=== PATIENT | female | born 1965 | race Caucasian/White ===

== ENCOUNTER 2022-10-13 03:24 | Observation (INO) | payer BC ==
[2022-10-13] MEDS ORDERED: PROTONIX 40 MG IV IV ONE ×2 (03:36→04:03)
[2022-10-13] MEDS ORDERED: Pepcid 20 MG VIAL IV ONE ×2 (03:36→04:03)
--- NOTE | 2022-10-13 03:41 | ERPHSYRPT ---
- History of Present Illness Time Seen by Provider: 10/13/22 03:38 Historian: patient, family Exam Limitations: no limitations Physician History: Hx confirmed with independent interview family member. Pt has PMHx of esopahgeal problems with spasm in 'throat ' causing difficulties swallowing and required botox injections - resolved one year ago. No hx ht problems except for hptn. No hx blood clot dvt or PE. Timing/Duration: today Activities at Onset: none, sleep Quality: sharpness Location: central Chest Pain Radiation: no radiation Severity of Pain-Max: moderate Severity of Pain-Current: moderate Modifying Factors: Improves With: nothing Associated Symptoms: heartburn, shortness of breath Prior Chest Pain/Cardiac Workup: no prior chest pain Nitro Today/Relief: 0.4 mg x 1, provided by ED Aspirin Treatment Today: 81 mg x 4, provided by ED Allergies/Adverse Reactions: No Known Drug Allergies Allergy (Unverified 10/13/22 03:57) Home Medications: Estradiol [Estrace] 0.5 mg PO DAILY 10/13/22 [History] Lisinopril 20 mg [Zestril 20 MG] 20 cap PO DAILY 10/13/22 [History] - Review of Systems Constitutional: No Fever, No Chills Eyes: No Symptoms Ears, Nose, & Throat: No Symptoms Respiratory: Dyspnea, No Cough Cardiac: Chest Pain, No Edema, No Syncope Abdominal/Gastrointestinal: No Abdominal Pain, No Nausea, No Vomiting, No Di arrhea Genitourinary Symptoms: No Dysuria Musculoskeletal: No Back Pain, No Neck Pain Skin: No Rash Neurological: No Dizziness, No Focal Weakness, No Sensory Changes Psychological: No Symptoms Endocrine: No Symptoms Hematologic/Lymphatic: No Symptoms Immunological/Allergic: No Symptoms All Other Systems: Reviewed and Negative - Past Medical History Pertinent Past Medical History: Yes - Nursing Vital Signs Nursing Vital Signs: Initial Vital Signs Temperature 97.5 F 10/13/22 03:25 Pulse Rate 77 10/13/22 03:25 Respiratory Rate 18 10/13/22 03:25 Blood Pressure 157/80 10/13/22 03:25 O2 Sat by Pulse Oximetry 99 10/13/22 03:25 Pain Scale Pain Intensity 3 - Physical Exam General Appearance: no apparent distress, alert Eye Exam: PERRL/EOMI, eyes nml inspection Ears, Nose, Throat Exam: normal ENT inspection, moist mucous membranes Neck Exam: normal inspection, non-tender, supple, full range of motion Respiratory Exam: normal breath sounds, lungs clear, No respiratory distress Cardiovascular Exam: regular rate/rhythm, normal heart sounds Gastrointestinal/Abdomen Exam: soft, No tenderness, No mass Pelvic Exam: deferred Rectal Exam: deferred Back Exam: normal inspection, No CVA tenderness, No vertebral tenderness Extremity Exam: normal inspection, normal range of motion Neurologic Exam: alert, oriented x 3, cooperative, normal mood/affect, sensation nml, No motor deficits Skin Exam: normal color, warm, dry SpO2 Interpretation: normal SpO2: 96 O2 Delivery: Room Air - Course Nursing assessment & vital signs reviewed: Yes EKG Interpreted by Me: Sinus Rhythm, NORMAL AXIS, NORMAL INTERVALS, NORMAL QRS, NORMAL ST-T - Radiology Exams Chest X-ray Interpretation: Reviewed by me, Other (minimal interstitial changes) Ordered Tests: Active Orders 24 hr Category Date Time Status EKG-ER Only STAT Care 10/13/22 03:36 Active IV Insertion STAT Care 10/13/22 03:36 Active CHEST 1 VIEW (PORTABLE) Stat Exams 10/13/22 03:36 Taken CBC W DIFF Stat Lab 10/13/22 03:44 Completed CMP Stat Lab 10/13/22 03:44 Completed D-DIMER QUANTITATIVE Stat Lab 10/13/22 03:44 Completed Lactic Acid Stat Lab 10/13/22 03:50 Completed NT PRO BNP Stat Lab 10/13/22 03:44 Completed TROPONIN Q4H Lab 10/13/22 03:44 Completed TROPONIN Q4H Lab 10/13/22 07:45 Ordered TROPONIN Q4H Lab 10/13/22 11:45 Ordered Medication Summary Generic Name Dose Route Start Last Admin Trade Name Freq PRN Reason Stop Dose Admin Sodium Chloride 1,000 mls @ 100 mls/hr 10/13/22 03:45 10/13/22 05:12 Sodium Chloride 0.9% 1000 Ml IV 11/12/22 03:44 Infused .Q10H VERO Infusion Discontinued Medications Generic Name Dose Route Start Last Admin Trade Name Freq PRN Reason Stop Dose Admin Aspirin 81 mg 10/13/22 04:36 10/13/22 04:40 Aspirin 81 Mg Tab.Chew PO 10/13/22 04:37 81 mg STAT ONE Administration Aspirin 162 mg 10/13/22 04:37 10/13/22 04:40 Aspirin 81 Mg Tab.Chew PO 10/13/22 04:38 162 mg STAT ONE Administration Famotidine 20 mg 10/13/22 03:36 10/13/22 04:09 Famotidine 20 Mg/1 Vial IV 10/13/22 03:37 20 mg STAT ONE Administration Famotidine Confirm 10/13/22 04:03 Famotidine 20 Mg/1 Vial Administered 10/13/22 04:04 Dose 20 mg IV .STK-MED ONE Nitroglycerin 0.4 mg 10/13/22 04:36 10/13/22 04:40 Nitroglycerin 0.4 Mg (Ed) 0.4 Mg Tab.Subl SL 10/13/22 04:37 0.4 mg STAT ONE Administration Pantoprazole Sodium 40 mg 10/13/22 03:36 10/13/22 04:09 Pantoprazole 40 Mg Vial IV 10/13/22 03:37 40 mg STAT ONE Administration Pantoprazole Sodium Confirm 10/13/22 04:03 Pantoprazole 40 Mg Vial Administered 10/13/22 04:04 Dose 40 mg IV .STK-MED ONE Lab/Rad Data: Laboratory Result Diagrams 10/13/22 03:44 10/13/22 03:44 Laboratory Results 10/13/22 10/13/22 10/13/22 Range/Units 05:20 03:50 03:44 WBC (4.0-10.5) x10^3/uL RBC (4.1-5.4) x10^6/uL Hgb (12.0-16.0) g/dL Hct (35-47) % MCV (78-100) fL MCH (26-32) pg MCHC (32-36) g/dL RDW (11.5-14.0) % Plt Count (150-450) x10^3/uL MPV (7.5-11.0) fL Gran % (36.0-66.0) % Immature Gran % (Auto) (0.00-0.4) % Nucleat RBC Rel Count (0.00-0.1) % Eos # (Auto) (0-0.5) x10^3/uL Immature Gran # (Auto) (0.00-0.03) x10^3u/L Absolute Lymphs (auto) (1.0-4.6) x10^3/uL Absolute Monos (auto) (0.0-1.3) x10^3/uL Absolute Nucleated RBC (0.00-0.01) x10^3u/L Lymphocytes % (24.0-44.0) % Monocytes % (0.0-12.0) % Eosinophils % (0.00-5.0) % Basophils % (0.0-0.4) % Absolute Granulocytes (1.4-6.9) x10^3/uL Basophils # (0-0.4) x10^3/uL D-Dimer 0.39 (0.0-0.50) mg/L Sodium (137-145) mmol/L Potassium (3.5-5.1) mmol/L Chloride (98-107) mmol/L Carbon Dioxide (22-30) mmol/L Anion Gap (5-15) MEQ/L BUN (7-17) mg/dL Creatinine (0.52-1.04) mg/dL Estimated GFR ML/MIN Glucose (74-106) mg/dL Lactic Acid 1.4 (0.4-2.0) Calcium (8.4-10.2) mg/dL Total Bilirubin (0.2-1.3) mg/dL AST (14-36) U/L ALT (0-35) U/L Alkaline Phosphatase (38-126) U/L Troponin I (0.000-0.034) ng/mL NT-Pro-B Natriuret Pep (0-900) pg/mL Serum Total Protein (6.3-8.2) g/dL Albumin (3.5-5.0) g/dL Influenza Type A Ag NEGATIVE (NEGATIVE) Influenza Type B Ag NEGATIVE (NEGATIVE) RSV (PCR) NEGATIVE (Negative) SARS-CoV-2 (PCR) NEGATIVE (NEGATIVE) 10/13/22 10/13/22 10/13/22 Range/Units 03:44 03:44 03:44 WBC 7.8 (4.0-10.5) x10^3/uL RBC 5.12 (4.1-5.4) x10^6/uL Hgb 14.5 (12.0-16.0) g/dL Hct 44.9 (35-47) % MCV 87.7 (78-100) fL MCH 28.3 (26-32) pg MCHC 32.3 (32-36) g/dL RDW 13.7 (11.5-14.0) % Plt Count 257 (150-450) x10^3/uL MPV 10.2 (7.5-11.0) fL Gran % 72.2 H (36.0-66.0) % Immature Gran % (Auto) 0.6 H (0.00-0.4) % Nucleat RBC Rel Count 0.0 (0.00-0.1) % Eos # (Auto) 0.08 (0-0.5) x10^3/uL Immature Gran # (Auto) 0.05 H (0.00-0.03) x10^3u/L Absolute Lymphs (auto) 1.29 (1.0-4.6) x10^3/uL Absolute Monos (auto) 0.71 (0.0-1.3) x10^3/uL Absolute Nucleated RBC 0.00 (0.00-0.01) x10^3u/L Lymphocytes % 16.6 L (24.0-44.0) % Monocytes % 9.2 (0.0-12.0) % Eosinophils % 1.0 (0.00-5.0) % Basophils % 0.4 (0.0-0.4) % Absolute Granulocytes 5.59 (1.4-6.9) x10^3/uL Basophils # 0.03 (0-0.4) x10^3/uL D-Dimer (0.0-0.50) mg/L Sodium 139 (137-145) mmol/L Potassium 3.8 (3.5-5.1) mmol/L Chloride 106 (98-107) mmol/L Carbon Dioxide 32 H (22-30) mmol/L Anion Gap 5.1 (5-15) MEQ/L BUN 17 (7-17) mg/dL Creatinine 0.56 (0.52-1.04) mg/dL Estimated GFR > 60.0 ML/MIN Glucose 157 H (74-106) mg/dL Lactic Acid (0.4-2.0) Calcium 9.1 (8.4-10.2) mg/dL Total Bilirubin 0.80 (0.2-1.3) mg/dL AST 304 H (14-36) U/L ALT 166 H (0-35) U/L Alkaline Phosphatase 107 (38-126) U/L Troponin I < 0.012 (0.000-0.034) ng/mL NT-Pro-B Natriuret Pep 22.1 (0-900) pg/mL Serum Total Protein 6.7 (6.3-8.2) g/dL Albumin 4.3 (3.5-5.0) g/dL Influenza Type A Ag (NEGATIVE) Influenza Type B Ag (NEGATIVE) RSV (PCR) (Negative) SARS-CoV-2 (PCR) (NEGATIVE) - Progress Progress: improved, re-examined Air Movement: good Progress Note: 10/13/22 04:57 Discussed results with pt and including risks for evolving ACS even with first normal trop and they wish to stay for further enzymes here; there was some relief with NTG. 10/13/22 06:[address] Prabhakar and all agree best for pt to come in on obs for more trops and then arrange outpt f/u when cleared. Blood Culture(s) Obtained: No Antibiotics given: No Discussed with : Loretta Will see patient in: hospital (observation) Counseled pt/family regarding: lab results, diagnosis, need for follow-up, rad results - Departure Departure Disposition: Observation Clinical Impression: chest pain Condition: Good Critical Care Time: No Referrals: GERMAN TIRADO, DO [Primary Care Provider] - Follow up/PCP as directed
[2022-10-13] MEDS ORDERED: Sodium Chloride 0.9% 1000 ML 1,000 ML IV SCH (03:45)
[2022-10-13 04:00] LABS: Absolute Neutrophil Ct (ANC) 5.59 x10^3/uL (1.4-6.9); BASOPHIL % 0.4 % (0.0-0.4); Basophil (Absolute #) 0.03 x10^3/uL (0-0.4); Eosinophil (Absolute #) 0.08 x10^3/uL (0-0.5); Hematocrit 44.9 % (35-47); Hemoglobin 14.5 g/dL (12.0-16.0); IMMATURE GRAN # 0.05 x10^3u/L (0.00-0.03); IMMATURE GRAN % 0.6 % (0.00-0.4); Lymphocyte (Absolute #) 1.29 x10^3/uL (1.0-4.6); Lymphocytes % 16.6 % (24.0-44.0); Mean Cell Volume 87.7 fL (78-100); Mean Corpuscular Hemoglobin 28.3 pg (26-32); Mean Corpuscular Hgb Concent. 32.3 g/dL (32-36); Mean Platelet Volume 10.2 fL (7.5-11.0); Monocyte (Absolute #) 0.71 x10^3/uL (0.0-1.3); Monocytes % 9.2 % (0.0-12.0); Neutrophil % 72.2 % (36.0-66.0); Platelet Count 257 x10^3/uL (150-450); Red Blood Count 5.12 x10^6/uL (4.1-5.4); Red Cell Distribution Width 13.7 % (11.5-14.0); White Blood Count 7.8 x10^3/uL (4.0-10.5)
[2022-10-13 04:01] LABS: ALBUMIN 4.3 g/dL (3.5-5.0); ALKALINE PHOSPHATASE 107 U/L (38-126); ANION GAP 5.1 MEQ/L (5-15); BLOOD UREA NITROGEN 17 mg/dL (7-17); CHLORIDE 106 mmol/L (98-107); Calcium 9.1 mg/dL (8.4-10.2); Carbon Dioxide 32 mmol/L (22-30); Creatinine 1 0.56 mg/dL (0.52-1.04); EST GLOMERULAR FILTRATION RATE > 60.0 ML/MIN; Glucose 157 mg/dL (74-106); Potassium 3.8 mmol/L (3.5-5.1); SGOT/AST 304 U/L (14-36); SGPT/ALT 166 U/L (0-35); SODIUM 139 mmol/L (137-145); Total Protein 6.7 g/dL (6.3-8.2)
[2022-10-13] MEDS ORDERED: Sodium Chloride 0.9% 1000 ML 1,000 ML ONE (04:03)
[2022-10-13 04:13] LABS: NT PRO BNP 22.1 pg/mL (0-900); TROPONIN < 0.012 ng/mL (0.000-0.034)
[2022-10-13] MEDS ORDERED: BABY ASPIRIN 81 MG CHEW PO ONE ×2 (04:36→04:37)
[2022-10-13] MEDS ORDERED: Nitrostat 0.4 MG (ED) SL ONE (04:36)
[2022-10-13 05:59] LABS: INFLUENZA A NEGATIVE (NEGATIVE); INFLUENZA B NEGATIVE (NEGATIVE); RESPIRATORY SYNCTIAL VIRUS NEGATIVE (Negative); SARS-CoV-2 Xpert Express NEGATIVE (NEGATIVE)
--- NOTE | 2022-10-13 08:13 | XRAY ---
Indication: Chest pain. Comparison: None Portable chest demonstrates normal heart and lungs. Bony thorax intact.
[2022-10-13] MEDS ORDERED: Senokot-S Tablet PO PRN (09:02)
[2022-10-13] MEDS ORDERED: TYLENOL 325 MG PO PRN (09:02)
[2022-10-13] MEDS ORDERED: MILK OF MAGNESIA 30 ML PO PRN (09:02)
[2022-10-13] MEDS ORDERED: Sodium Chloride 0.9% 500 ML 500 ML IV SCH (09:02)
[2022-10-13] MEDS ORDERED: HUMULIN R SQ PRN (09:02)
[2022-10-13] MEDS ORDERED: MAALOX ES 30 ML UNIT DOSE PO PRN (09:02)
[2022-10-13] MEDS ORDERED: Zofran 4 MG/2 ML VIAL IV PRN (09:02)
[2022-10-13] MEDS ORDERED: Zestril 20 MG PO SCH (10:00)
[2022-10-13] MEDS ORDERED: ESTRACE 1 MG PO SCH (10:00)
[2022-10-13 11:49] VITALS: O2SAT 95
[2022-10-13 12:37] VITALS: BP 132/69; PULSE 84
[2022-10-13] MEDS ORDERED: VITAMIN D PO SCH (14:00)
--- NOTE | 2022-10-13 14:29 | PCM.SSS ---
History of Present Illness - Chief Complaint Chief Complaint: Chest pain rule out History of Present Illness: is a 57 year old female pt of Dr. Vandana Saldivar with PMHx HTN and Eliza's thyroiditis who was admitted through ER with chest pain to rule out [place]. Her troponins have been negative and her EKG was NSR with no acute ST changes indicative of ischemia. This morning she woke up at 2 am with substernal and L-sided chest pressure, 10/10, intermittent, lasting until 11 am. She did not have any shortness of breath, but was diaphoretic, had nausea, no vomiting, no palpitations. She took pepcid this morning without relief. At 3 am she took an 81mg ASA and when her B P was 101 diastolic, decided to come to ER. Her troponins have been neg x 3. CXR is non acute. WBC 7.8, hgb 14.5. a1c i 5.53. K+ 3.8 and BS 157. AST and ALT were 304 and 166, so hepatitis panel has been ordered and she is to have a CMP re-drawn in 2 days. Pt had a remote history of esophageal issues, was regurgitating food at one time and had botox injected; this was about 1 yr ago. She is to f/u with her PCP in 1 week. We did discuss that although there appears to not have been an acute coronary event today, she may have coronary artery disease and may benefit from a stress test. - Review of Systems Cardiac: Chest Pain, Other (diaphoresis) Abdominal/Gastrointestinal: Nausea All Other Systems: Reviewed and Negative Medications & Allergies Home Medications: Home Medication List Aspirin 81 gm Chew [Baby Aspirin 81 mg Chew] 81 mg PO DAILY #30 tab.chew 10/13/22 [Rx] Cholecalciferol (Vitamin D3) [Vitamin D] 5,000 unit PO DAILY 10/13/22 [History Confirmed 10/13/22] Estradiol [Estrace] 0.5 mg PO DAILY 10/13/22 [History Confirmed 10/13/22] Lisinopril 20 mg [Zestril 20 MG] 20 cap PO DAILY 10/13/22 [History Confirmed 10/13/22] Allergies/Adverse Reactions: Allergies Allergy/AdvReac Type Severity Reaction Status Date / Time No Known Drug Allergies Allergy Unverified 10/13/22 03:57 - Past Medical History Past Medical History: Yes Neurological History: No Pertinent History ENT History: No Pertinent History Cardiac History: Hypertension Respiratory History: No Pertinent History Endocrine Medical History: Other Musculoskelatal History: No Pertinent History GI Medical History: No Pertinent History History: No Pertinent History Pyscho-Social History: No Pertinent History Reproductive Disorders: No Pertinent History Comment: Eliza - Female History Are you now?: No - Past Surgical History Past Surgical History: No Neuro Surgical History: No Pertinent History Cardiac History: No Pertinent History Respiratory Surgery: No Pertinent History GI Surgical History: No Pertinent History Genitourinary Surgical Hx: No Pertinent History Musculskeletal Surgical Hx: No Pertinent History Female Surgical History: No Pertinent History - Social History Smoking Status: Never smoker Exposure to second hand smoke: No Alcohol: Weekly Drug Use: none - Physical Exam Vital Signs: Vital Signs - 24 hr Temp Pulse Pulse Resp BP Pulse Ox 10/13/22 12:00 98.6 F 84 16 132/69 95 10/13/22 11:47 80 16 95 10/13/22 09:27 99.0 F 80 18 138/79 92 L 10/13/22 09:02 95 10/13/22 08:27 98.2 F 80 20 138/55 98 10/13/22 07:16 97.5 F 83 20 141/86 98 10/13/22 06:25 96 10/13/22 06:20 79 18 140/89 98 10/13/22 05:03 80 18 137/80 98 10/13/22 04:25 88 20 148/85 97 10/13/22 03:53 73 10/13/22 03:25 97.5 F 77 18 157/80 99 General Appearance: no apparent distress, alert Neurologic Exam: oriented x 3, cooperative Eye Exam: eyes nml inspection Ears, Nose, Throat Exam: moist mucous membranes Neck Exam: normal inspection, non-tender, No lymphadenopathy, No thyromegaly Respiratory Exam: normal breath sounds, lungs clear, No crackles/rales, No rhonchi, No wheezing Cardiovascular Exam: regular rate/rhythm, normal heart sounds, No murmur Gastrointestinal/Abdomen Exam: soft, normal bowel sounds, No tenderness, No distention, No mass, No guarding, No rebound Back Exam: normal inspection, No CVA tenderness, No rash Extremity Exam: normal inspection, No pedal edema, No swelling Skin Exam: normal color, warm, dry, No rash Results - Labs Lab/Micro Results: Lab Results-Last 24 Hours 10/13/22 10/13/22 10/13/22 Range/Units 03:44 03:44 03:44 WBC 7.8 (4.0-10.5) x10^3/uL RBC 5.12 (4.1-5.4) x10^6/uL Hgb 14.5 (12.0-16.0) g/dL Hct 44.9 (35-47) % MCV 87.7 (78-100) fL MCH 28.3 (26-32) pg MCHC 32.3 (32-36) g/dL RDW 13.7 (11.5-14.0) % Plt Count 257 (150-450) x10^3/uL MPV 10.2 (7.5-11.0) fL Gran % 72.2 H (36.0-66.0) % Immature Gran % (Auto) 0.6 H (0.00-0.4) % Nucleat RBC Rel Count 0.0 (0.00-0.1) % Eos # (Auto) 0.08 (0-0.5) x10^3/uL Immature Gran # (Auto) 0.05 H (0.00-0.03) x10^3u/L Absolute Lymphs (auto) 1.29 (1.0-4.6) x10^3/uL Absolute Monos (auto) 0.71 (0.0-1.3) x10^3/uL Absolute Nucleated RBC 0.00 (0.00-0.01) x10^3u/L Lymphocytes % 16.6 L (24.0-44.0) % Monocytes % 9.2 (0.0-12.0) % Eosinophils % 1.0 (0.00-5.0) % Basophils % 0.4 (0.0-0.4) % Absolute Granulocytes 5.59 (1.4-6.9) x10^3/uL Basophils # 0.03 (0-0.4) x10^3/uL D-Dimer (0.0-0.50) mg/L Sodium 139 (137-145) mmol/L Potassium 3.8 (3.5-5.1) mmol/L Chloride 106 (98-107) mmol/L Carbon Dioxide 32 H (22-30) mmol/L Anion Gap 5.1 (5-15) MEQ/L BUN 17 (7-17) mg/dL Creatinine 0.56 (0.52-1.04) mg/dL Estimated GFR > 60.0 ML/MIN Glucose 157 H (74-106) mg/dL Hemoglobin A1c (4.5-6.0) % Lactic Acid (0.4-2.0) Calcium 9.1 (8.4-10.2) mg/dL Total Bilirubin 0.80 (0.2-1.3) mg/dL AST 304 H (14-36) U/L ALT 166 H (0-35) U/L Alkaline Phosphatase 107 (38-126) U/L Troponin I < 0.012 (0.000-0.034) ng/mL NT-Pro-B Natriuret Pep 22.1 (0-900) pg/mL Serum Total Protein 6.7 (6.3-8.2) g/dL Albumin 4.3 (3.5-5.0) g/dL Influenza Type A Ag (NEGATIVE) Influenza Type B Ag (NEGATIVE) RSV (PCR) (Negative) SARS-CoV-2 (PCR) (NEGATIVE) 10/13/22 10/13/22 10/13/22 Range/Units 03:44 03:44 03:50 WBC (4.0-10.5) x10^3/uL RBC (4.1-5.4) x10^6/uL Hgb (12.0-16.0) g/dL Hct (35-47) % MCV (78-100) fL MCH (26-32) pg MCHC (32-36) g/dL RDW (11.5-14.0) % Plt Count (150-450) x10^3/uL MPV (7.5-11.0) fL Gran % (36.0-66.0) % Immature Gran % (Auto) (0.00-0.4) % Nucleat RBC Rel Count (0.00-0.1) % Eos # (Auto) (0-0.5) x10^3/uL Immature Gran # (Auto) (0.00-0.03) x10^3u/L Absolute Lymphs (auto) (1.0-4.6) x10^3/uL Absolute Monos (auto) (0.0-1.3) x10^3/uL Absolute Nucleated RBC (0.00-0.01) x10^3u/L Lymphocytes % (24.0-44.0) % Monocytes % (0.0-12.0) % Eosinophils % (0.00-5.0) % Basophils % (0.0-0.4) % Absolute Granulocytes (1.4-6.9) x10^3/uL Basophils # (0-0.4) x10^3/uL D-Dimer 0.39 (0.0-0.50) mg/L Sodium (137-145) mmol/L Potassium (3.5-5.1) mmol/L Chloride (98-107) mmol/L Carbon Dioxide (22-30) mmol/L Anion Gap (5-15) MEQ/L BUN (7-17) mg/dL Creatinine (0.52-1.04) mg/dL Estimated GFR ML/MIN Glucose (74-106) mg/dL Hemoglobin A1c 5.53 (4.5-6.0) % Lactic Acid 1.4 (0.4-2.0) Calcium (8.4-10.2) mg/dL Total Bilirubin (0.2-1.3) mg/dL AST (14-36) U/L ALT (0-35) U/L Alkaline Phosphatase (38-126) U/L Troponin I (0.000-0.034) ng/mL NT-Pro-B Natriuret Pep (0-900) pg/mL Serum Total Protein (6.3-8.2) g/dL Albumin (3.5-5.0) g/dL Influenza Type A Ag (NEGATIVE) Influenza Type B Ag (NEGATIVE) RSV (PCR) (Negative) SARS-CoV-2 (PCR) (NEGATIVE) 10/13/22 10/13/22 10/13/22 Range/Units 05:20 08:25 11:14 WBC (4.0-10.5) x10^3/uL RBC (4.1-5.4) x10^6/uL Hgb (12.0-16.0) g/dL Hct (35-47) % MCV (78-100) fL MCH (26-32) pg MCHC (32-36) g/dL RDW (11.5-14.0) % Plt Count (150-450) x10^3/uL MPV (7.5-11.0) fL Gran % (36.0-66.0) % Immature Gran % (Auto) (0.00-0.4) % Nucleat RBC Rel Count (0.00-0.1) % Eos # (Auto) (0-0.5) x10^3/uL Immature Gran # (Auto) (0.00-0.03) x10^3u/L Absolute Lymphs (auto) (1.0-4.6) x10^3/uL Absolute Monos (auto) (0.0-1.3) x10^3/uL Absolute Nucleated RBC (0.00-0.01) x10^3u/L Lymphocytes % (24.0-44.0) % Monocytes % (0.0-12.0) % Eosinophils % (0.00-5.0) % Basophils % (0.0-0.4) % Absolute Granulocytes (1.4-6.9) x10^3/uL Basophils # (0-0.4) x10^3/uL D-Dimer (0.0-0.50) mg/L Sodium (137-145) mmol/L Potassium (3.5-5.1) mmol/L Chloride (98-107) mmol/L Carbon Dioxide (22-30) mmol/L Anion Gap (5-15) MEQ/L BUN (7-17) mg/dL Creatinine (0.52-1.04) mg/dL Estimated GFR ML/MIN Glucose (74-106) mg/dL Hemoglobin A1c (4.5-6.0) % Lactic Acid (0.4-2.0) Calcium (8.4-10.2) mg/dL Total Bilirubin (0.2-1.3) mg/dL AST (14-36) U/L ALT (0-35) U/L Alkaline Phosphatase (38-126) U/L Troponin I 0.019 0.018 (0.000-0.034) ng/mL NT-Pro-B Natriuret Pep (0-900) pg/mL Serum Total Protein (6.3-8.2) g/dL Albumin (3.5-5.0) g/dL Influenza Type A Ag NEGATIVE (NEGATIVE) Influenza Type B Ag NEGATIVE (NEGATIVE) RSV (PCR) NEGATIVE (Negative) SARS-CoV-2 (PCR) NEGATIVE (NEGATIVE) - Radiology Impressions Radiology Exams & Impressions: Radiology Procedures Category Date Time Status CHEST 1 VIEW (PORTABLE) Stat Exams 10/13/22 03:36 Completed - Other Procedures and Tests Respiratory Therapy 10/14/22 05:00 EKG ROUTINE 10/15/22 05:00 EKG ROUTINE 10/16/22 05:00 EKG ROUTINE Assessment/Plan (1) Chest pain Current Visit: Yes Status: Acute Qualifiers: Chest pain type: unspecified Qualified Code(s): R07.9 - Chest pain, unspecified Assessment & Plan: Resolved. [place] ruled out. F/u with PCP for OP testing. Code(s): R07.9 - CHEST PAIN, UNSPECIFIED (2) Elevated liver enzymes Current Visit: Yes Status: Acute Assessment & Plan: f/u with OP lab. hepatitis panel pending Code(s): R74.8 - ABNORMAL LEVELS OF OTHER SERUM ENZYMES Hospital Summary - Hospital Course Hospital Course: Pt is 57 [address] to r/o [place]. Troponins neg x 3 and EKG non acute. Will f/u with Dr. Saldivar in 1 week for possible outpatient stress testing. Pt did have elevated liver enzymes, which she will have rechecked in 2 days. Hepatitis panel pending. - Vitals & Intake/Output Vital Signs: Vital Signs Temperature 98.6 F 10/13/22 12:00 Pulse Rate 84 10/13/22 12:00 Respiratory Rate 16 10/13/22 12:00 Blood Pressure 132/69 10/13/22 12:00 O2 Sat by Pulse Oximetry 95 10/13/22 12:00 Intake & Output: Intake & Output 10/11/22 10/12/22 10/13/22 10/14/22 11:59 11:59 11:59 11:59 Intake Total 240 Balance 240 Weight 66.2 kg - Lab Result Diagrams: 10/13/22 03:44 10/13/22 03:44 Lab Results-Last 24 Hrs: Lab Results-Last 24 Hours 10/13/22 10/13/22 10/13/22 Range/Units 03:44 03:44 03:44 WBC 7.8 (4.0-10.5) x10^3/uL RBC 5.12 (4.1-5.4) x10^6/uL Hgb 14.5 (12.0-16.0) g/dL Hct 44.9 (35-47) % MCV 87.7 (78-100) fL MCH 28.3 (26-32) pg MCHC 32.3 (32-36) g/dL RDW 13.7 (11.5-14.0) % Plt Count 257 (150-450) x10^3/uL MPV 10.2 (7.5-11.0) fL Gran % 72.2 H (36.0-66.0) % Immature Gran % (Auto) 0.6 H (0.00-0.4) % Nucleat RBC Rel Count 0.0 (0.00-0.1) % Eos # (Auto) 0.08 (0-0.5) x10^3/uL Immature Gran # (Auto) 0.05 H (0.00-0.03) x10^3u/L Absolute Lymphs (auto) 1.29 (1.0-4.6) x10^3/uL Absolute Monos (auto) 0.71 (0.0-1.3) x10^3/uL Absolute Nucleated RBC 0.00 (0.00-0.01) x10^3u/L Lymphocytes % 16.6 L (24.0-44.0) % Monocytes % 9.2 (0.0-12.0) % Eosinophils % 1.0 (0.00-5.0) % Basophils % 0.4 (0.0-0.4) % Absolute Granulocytes 5.59 (1.4-6.9) x10^3/uL Basophils # 0.03 (0-0.4) x10^3/uL D-Dimer (0.0-0.50) mg/L Sodium 139 (137-145) mmol/L Potassium 3.8 (3.5-5.1) mmol/L Chloride 106 (98-107) mmol/L Carbon Dioxide 32 H (22-30) mmol/L Anion Gap 5.1 (5-15) MEQ/L BUN 17 (7-17) mg/dL Creatinine 0.56 (0.52-1.04) mg/dL Estimated GFR > 60.0 ML/MIN Glucose 157 H (74-106) mg/dL Hemoglobin A1c (4.5-6.0) % Lactic Acid (0.4-2.0) Calcium 9.1 (8.4-10.2) mg/dL Total Bilirubin 0.80 (0.2-1.3) mg/dL AST 304 H (14-36) U/L ALT 166 H (0-35) U/L Alkaline Phosphatase 107 (38-126) U/L Troponin I < 0.012 (0.000-0.034) ng/mL NT-Pro-B Natriuret Pep 22.1 (0-900) pg/mL Serum Total Protein 6.7 (6.3-8.2) g/dL Albumin 4.3 (3.5-5.0) g/dL Influenza Type A Ag (NEGATIVE) Influenza Type B Ag (NEGATIVE) RSV (PCR) (Negative) SARS-CoV-2 (PCR) (NEGATIVE) 10/13/22 10/13/22 10/13/22 Range/Units 03:44 03:44 03:50 WBC (4.0-10.5) x10^3/uL RBC (4.1-5.4) x10^6/uL Hgb (12.0-16.0) g/dL Hct (35-47) % MCV (78-100) fL MCH (26-32) pg MCHC (32-36) g/dL RDW (11.5-14.0) % Plt Count (150-450) x10^3/uL MPV (7.5-11.0) fL Gran % (36.0-66.0) % Immature Gran % (Auto) (0.00-0.4) % Nucleat RBC Rel Count (0.00-0.1) % Eos # (Auto) (0-0.5) x10^3/uL Immature Gran # (Auto) (0.00-0.03) x10^3u/L Absolute Lymphs (auto) (1.0-4.6) x10^3/uL Absolute Monos (auto) (0.0-1.3) x10^3/uL Absolute Nucleated RBC (0.00-0.01) x10^3u/L Lymphocytes % (24.0-44.0) % Monocytes % (0.0-12.0) % Eosinophils % (0.00-5.0) % Basophils % (0.0-0.4) % Absolute Granulocytes (1.4-6.9) x10^3/uL Basophils # (0-0.4) x10^3/uL D-Dimer 0.39 (0.0-0.50) mg/L Sodium (137-145) mmol/L Potassium (3.5-5.1) mmol/L Chloride (98-107) mmol/L Carbon Dioxide (22-30) mmol/L Anion Gap (5-15) MEQ/L BUN (7-17) mg/dL Creatinine (0.52-1.04) mg/dL Estimated GFR ML/MIN Glucose (74-106) mg/dL Hemoglobin A1c 5.53 (4.5-6.0) % Lactic Acid 1.4 (0.4-2.0) Calcium (8.4-10.2) mg/dL Total Bilirubin (0.2-1.3) mg/dL AST (14-36) U/L ALT (0-35) U/L Alkaline Phosphatase (38-126) U/L Troponin I (0.000-0.034) ng/mL NT-Pro-B Natriuret Pep (0-900) pg/mL Serum Total Protein (6.3-8.2) g/dL Albumin (3.5-5.0) g/dL Influenza Type A Ag (NEGATIVE) Influenza Type B Ag (NEGATIVE) RSV (PCR) (Negative) SARS-CoV-2 (PCR) (NEGATIVE) 10/13/22 10/13/22 10/13/22 Range/Units 05:20 08:25 11:14 WBC (4.0-10.5) x10^3/uL RBC (4.1-5.4) x10^6/uL Hgb (12.0-16.0) g/dL Hct (35-47) % MCV (78-100) fL MCH (26-32) pg MCHC (32-36) g/dL RDW (11.5-14.0) % Plt Count (150-450) x10^3/uL MPV (7.5-11.0) fL Gran % (36.0-66.0) % Immature Gran % (Auto) (0.00-0.4) % Nucleat RBC Rel Count (0.00-0.1) % Eos # (Auto) (0-0.5) x10^3/uL Immature Gran # (Auto) (0.00-0.03) x10^3u/L Absolute Lymphs (auto) (1.0-4.6) x10^3/uL Absolute Monos (auto) (0.0-1.3) x10^3/uL Absolute Nucleated RBC (0.00-0.01) x10^3u/L Lymphocytes % (24.0-44.0) % Monocytes % (0.0-12.0) % Eosinophils % (0.00-5.0) % Basophils % (0.0-0.4) % Absolute Granulocytes (1.4-6.9) x10^3/uL Basophils # (0-0.4) x10^3/uL D-Dimer (0.0-0.50) mg/L Sodium (137-145) mmol/L Potassium (3.5-5.1) mmol/L Chloride (98-107) mmol/L Carbon Dioxide (22-30) mmol/L Anion Gap (5-15) MEQ/L BUN (7-17) mg/dL Creatinine (0.52-1.04) mg/dL Estimated GFR ML/MIN Glucose (74-106) mg/dL Hemoglobin A1c (4.5-6.0) % Lactic Acid (0.4-2.0) Calcium (8.4-10.2) mg/dL Total Bilirubin (0.2-1.3) mg/dL AST (14-36) U/L ALT (0-35) U/L Alkaline Phosphatase (38-126) U/L Troponin I 0.019 0.018 (0.000-0.034) ng/mL NT-Pro-B Natriuret Pep (0-900) pg/mL Serum Total Protein (6.3-8.2) g/dL Albumin (3.5-5.0) g/dL Influenza Type A Ag NEGATIVE (NEGATIVE) Influenza Type B Ag NEGATIVE (NEGATIVE) RSV (PCR) NEGATIVE (Negative) SARS-CoV-2 (PCR) NEGATIVE (NEGATIVE) - Radiology Exams Ordered Rad Exams-Entire Visit: Radiology Procedures Category Date Time Status CHEST 1 VIEW (PORTABLE) Stat Exams 10/13/22 03:36 Completed - Procedures and Test Procedures and Tests throughout Hospitalization: Therapy Orders & Screens 10/13/22 09:02 Respiratory Therapy Consult ONCE Comment: Reason For Exam: 10/13/22 11:25 EKG ROUTINE Comment: 10/14/22 05:00 EKG ROUTINE Comment: 10/15/22 05:00 EKG ROUTINE Comment: 10/16/22 05:00 EKG ROUTINE Comment: - Discharge Disposition: Home, Self-Care Condition: Good Prescriptions: New Aspirin 81 gm Chew [Baby Aspirin 81 mg Chew] 81 mg PO DAILY #30 tab.chew Continue Lisinopril 20 mg [Zestril 20 MG] 20 cap PO DAILY Estradiol [Estrace] 0.5 mg PO DAILY Cholecalciferol (Vitamin D3) [Vitamin D] 5,000 unit PO DAILY Outpatient Orders: CMP Time Frame: 2 Days, Facility: [facility], Location: LABORATORY Follow up with: VANDANA SALDIVAR DO [Primary Care Provider] -
[2022-10-13] MEDS ORDERED: Pepcid 20 MG VIAL IV SCH (22:00)
[2022-10-14] MEDS ORDERED: Ecotrin 325 MG PO SCH (10:00)
[2022-10-16 06:08] LABS: HBsAg Screen Negative (Negative); HCV Ab <0.1 s/co ratio (0.0-0.9); Hep A Ab, IgM Negative (Negative); Hep B Core Ab, IgM Negative (Negative)
== END 2022-10-13 15:57 | disposition home or self-care (01) ==
LOC: ED 03:24 → MED SURG 08:50
PROVIDERS: ADMIT Family Medicine; ATTEND Family Medicine
DX: R07.9 Chest pain, unspecified (principal); R74.8 Abnormal levels of other serum enzymes; I10 Essential (primary) hypertension; E06.3 Autoimmune thyroiditis; Z79.899 Other long term (current) drug therapy
CPT/HCPCS: 0241U; 36000; 36415; 71045; 80053; 80074; 83036; 83605; 83880; 84443; 84484; 85025; 85379; 93005; 93268; 94760; 96374; 96375; 99285; G0378; A9270-GY